=== PATIENT | female | born 1935 | race Caucasian/White ===

== ENCOUNTER 2019-08-31 23:05 | Emergency (ER) | payer OTHER ==
[~2019-08-31] VITALS: Ht 165.1 cm; Wt 93.0 kg
[2019-09-01 00:07] LABS: BASOPHILS % (AUTO) 0.1 % (0.0-2.0); HEMATOCRIT 35.5 % (31.2-41.9); HEMOGLOBIN 11.5 g/dL (10.9-14.3); LYMPHOCYTES # (AUTO) 0.2 K/uL (20.0-40.0); LYMPHOCYTES % (AUTO) 1.4 % (20.5-51.5); MEAN CORPUSCULAR HEMOGLOBIN 30.1 uug (24.7-32.8); MEAN CORPUSCULAR HGB CONC 33 g/dL (32.3-35.6); MEAN CORPUSCULAR VOLUME 92.5 fL (75.5-95.3); MONOCYTES # (AUTO) 1.4 K/uL (2.0-10.0); MONOCYTES % (AUTO) 8.2 % (0.0-11.0); NEUTROPHILS % (AUTO) 90.3 % (38.5-71.5); PLATELET COUNT (AUTO) 288 K/uL (179-408); RED BLOOD CELL COUNT(AUTO) 3.84 MIL/uL (3.63-4.92); WHITE BLOOD COUNT (AUTO) 17.7 K/uL (3.8-11.8)
[2019-09-01 00:21] LABS: BILIRUBIN,DIRECT 0.1 mg/dL (0.0-0.2); BILIRUBIN,TOTAL 0.4 mg/dL (0.2-1.0); CREATININE 0.7 mg/dL (0.6-1.3); TOTAL PROTEIN, SERUM 6.4 g/dL (6.4-8.2)
[2019-09-01 00:29] LABS: THYROID STIMULATING HORMONE 1.024 mIU/mL (0.358-3.740)
--- NOTE | 2019-09-01 00:55 | NUR ---
DR KULKARNI AT BEDSIDE WITH PATIENT AND DAUGHTER.
[2019-09-01] MEDS ORDERED: ALBUTEROL SULFATE 2.5 MG/ 0.5 ML NEBU NEB ONE (01:00)
[2019-09-01] MEDS ORDERED: IPRATROPIUM BROMIDE 0.5 MG/2.5 ML NEBU NEB ONE (01:00)
[2019-09-01] MEDS ORDERED: methylPREDNISolone SOD SUCC 125 MG/2 ML VIAL IV ONE (01:00)
[2019-09-01] MEDS ORDERED: PIPERACILLIN SODIUM/TAZOBACTAM 3.375 G in IV DEXTROSE 5% 50 ML IV ONE (01:00)
[2019-09-01] MEDS ORDERED: VANCOMYCIN 1G/D5W 200 ML PIGGYBACK IV ONE (01:00)
[2019-09-01] MEDS ORDERED: IPRATROPIUM BROMIDE 0.5 MG/2.5 ML NEBU ONE (01:05)
[2019-09-01] MEDS ORDERED: ALBUTEROL SULFATE 2.5 MG/ 0.5 ML NEBU ONE (01:06)
[2019-09-01] MEDS ORDERED: IV NORMAL SALINE 500 ML IV ONE (01:30)
[2019-09-01] MEDS ORDERED: IV NS 1000 ML 1,000 ML IV ONE (01:30)
[2019-09-01] MEDS ORDERED: methylPREDNISolone SOD SUCC 125 MG/2 ML VIAL ONE (01:58)
[2019-09-01] MEDS ORDERED: PIPERACILLIN/TAZOBACTAM/D5W 50 ML IV ONE (01:59)
[2019-09-01] MEDS ORDERED: TRAMADOL HCL 50 MG TABLET ONE (02:00)
[2019-09-01] MEDS ORDERED: VANCOMYCIN 1000 MG VIAL ONE (02:00)
[2019-09-01] MEDS ORDERED: TRAMADOL HCL 50 MG TABLET PO ONE (02:15)
--- NOTE | 2019-09-01 03:40 | NUR ---
Patient is resting comfortably in bed with eyes closed
--- NOTE | 2019-09-01 04:03 | NUR ---
REPORT GIVEN TO [facility] NURSE. CIV[facility] DRAFTER TIME [id number].
--- NOTE | 2019-09-01 05:15 | NUR ---
REPORT GIVEN TO [facility]. PATIENT LEFT NOT IN ANY DISTRESS.
== END 2019-09-01 05:20 | disposition short-term general hospital (02) ==
LOC: ER 23:08
DX: J18.9 Pneumonia, unspecified organism (principal); J90 Pleural effusion, not elsewhere classified; I48.91 Unspecified atrial fibrillation; I10 Essential (primary) hypertension; J45.909 Unspecified asthma, uncomplicated; Z88.0 Allergy status to penicillin; Z88.8 Allergy status to other drugs, medicaments and biological substances
CPT/HCPCS: 36415; 71045; 80048; 80076; 83605 ×2; 84443; 84484; 85025; 85730; 87040 ×2; 87400; 93005; 94640; 96365; 96366; 96367; 96375; 99285; J2543; J2930; J3370; J7060; 70030-TC; 87077; A4663; J3590; J7040

== ENCOUNTER 2022-04-19 22:23 | Emergency (ER) | payer OTHER ==
[~2022-04-19] VITALS: Ht 167.6 cm; Wt 61.7 kg
--- NOTE | 2022-04-19 22:53 | NUR ---
Dr. Monk at bedside for MSE
--- NOTE | 2022-04-19 22:54 | NUR ---
Dr. Monk on the phone with patient's daughter Sabi
[2022-04-19] MEDS ORDERED: predniSONE 10 MG TABLET PO ONE (23:00)
[2022-04-19] MEDS ORDERED: predniSONE 20 MG TABLET ONE (23:03)
[2022-04-19 23:23] LABS: ABG BASE EXCESS 19.3 mmol/L; ABG HCO3 46.8 mmol/L; ABG PCO2 66.1 mmHg (35.0-45.0); ABG PH 7.468 (7.350-7.450); ABG PO2 68.5 mmHg (75.0-100.0); ABG SITE LEFT RADIAL; ABG TOTAL HEMOGLOBIN 13.5 G/dL (12.0-16.0); COHb 0.9 % (0.5-1.5); MetHb 0.4 % (0.0-1.5); O2Hb 94.4 % (94.0-97.0); VENT MODE Nasal Cannula
[2022-04-19 23:28] LABS: HEMATOCRIT 37.9 % (31.2-41.9); MEAN CORPUSCULAR HEMOGLOBIN 29.8 uug (24.7-32.8); MEAN CORPUSCULAR VOLUME 92.3 fL (75.5-95.3); PLATELET COUNT (AUTO) 222 K/uL (179-408)
[2022-04-19 23:31] LABS: CHLORIDE 94 mmol/L (98-107); GLUCOSE 139 mg/dL (74-106); POTASSIUM 4.4 mmol/L (3.5-5.1); UREA NITROGEN, BLOOD 37 mg/dL (7-18)
[2022-04-19] MEDS ORDERED: ASPI81TA31 PO (23:31)
[2022-04-19] MEDS ORDERED: MONT10TA33 PO (23:31)
[2022-04-19] MEDS ORDERED: CHOL200010 PO (23:31)
[2022-04-19] MEDS ORDERED: THEO200C4 PO (23:31)
[2022-04-19] MEDS ORDERED: METO50TA16 PO (23:31)
[2022-04-19] MEDS ORDERED: DOCU100C36 PO (23:31)
[2022-04-19] MEDS ORDERED: ZINC50TA39 PO (23:31)
[2022-04-19 23:34] LABS: CARBON DIOXIDE 46 mmol/L (21-32)
[2022-04-19] MEDS ORDERED: FAMO-132 PO (23:34)
[2022-04-19] MEDS ORDERED: ASCO500C18 PO (23:34)
[2022-04-19] MEDS ORDERED: ALBU18HF2 INH (23:34)
[2022-04-19] MEDS ORDERED: ACET100V4 MC (23:40)
[2022-04-19] MEDS ORDERED: CALC600T35 PO (23:40)
[2022-04-19] MEDS ORDERED: PRED2.5T PO (23:40)
[2022-04-19] MEDS ORDERED: MOME13HF INH (23:40)
[2022-04-19] MEDS ORDERED: CYAN-51 PO (23:40)
[2022-04-19] MEDS ORDERED: QUET25TA PO (23:40)
[2022-04-19] MEDS ORDERED: BISA-79 PO (23:43)
--- NOTE | 2022-04-19 23:47 | NUR ---
Bipap placed on pt, settings: 11/02, rate 16, 28% FI02
[2022-04-19 23:48] LABS: ALANINE AMINOTRANSFERASE 18 U/L (14-59); ALKALINE PHOSPHATASE 97 U/L (50-136); ASPARTATE AMINOTRANSFERASE 18 U/L (15-37); BILIRUBIN,DIRECT 0.2 mg/dL (0.0-0.2); BILIRUBIN,TOTAL 0.7 mg/dL (0.2-1.0); TOTAL PROTEIN, SERUM 5.8 g/dL (6.4-8.2)
--- NOTE | 2022-04-20 00:36 | NUR ---
Call placed to No[facility] COWART
--- NOTE | 2022-04-20 00:50 | NUR ---
Dr. Monk on the phone with Dr. Burns from [place]
--- NOTE | 2022-04-20 02:27 | NUR ---
Report given to Ruth MARTINEZ at [facility]
--- NOTE | 2022-04-20 02:31 | NUR ---
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
--- NOTE | 2022-04-20 02:45 | NUR ---
Patient Tranfers to outside Facility Physician: Dr. Fox Location: [facility]
== END 2022-04-20 02:48 | disposition short-term general hospital (02) ==
LOC: ER 22:23
DX: J98.01 Acute bronchospasm (principal); J44.1 Chronic obstructive pulmonary disease with (acute) exacerbation; E87.2 Acidosis; R62.7 Adult failure to thrive; Z68.22 Body mass index [BMI] 22.0-22.9, adult; R94.31 Abnormal electrocardiogram [ECG] [EKG]; R40.0 Somnolence; Z79.82 Long term (current) use of aspirin; Z79.899 Other long term (current) drug therapy; I50.9 Heart failure, unspecified; M19.90 Unspecified osteoarthritis, unspecified site; Z66 Do not resuscitate; Z20.822 Contact with and (suspected) exposure to COVID-19
CPT/HCPCS: 99291; 87426; 80076; 80048; 83880; 85025; 85379; 84484 ×3; 36415 ×2; 93005; 71045; 94660; 36600; J7512